=== PATIENT | female | born 1955 | race Caucasian/White ===

== ENCOUNTER 2018-10-28 11:31 | Day surgery (SDC) | payer OTHER, SELFPAY ==
[2018-10-28 11:48] VITALS: BP 184/84; PULSE 62; RESP 16; TEMP 36.4; O2SAT 100; BMI 18.5
[2018-10-28] MEDS: PROPARACAINE 0.5% OPHTH SOL 2 DROPS EYE-OP (12:07)
[2018-10-28] MEDS: CATARACT EYE COMPOUND (10 DROPS/SYRINGE) 3 DROPS EYE-OP (12:09)
--- NOTE | 2018-10-28 12:16 | PM.PREOP ---
Pre-operative Note Interval Note History & Physical reviewed/Exam performed by Physician: Yes Changes to H&P: No
[2018-10-28] MEDS: LIDOCAINE JELLY 2% 5 ML 1 APPLIC TOP (13:14)
[2018-10-28] MEDS: CHONDROIDTIN/SOD HYALURONATE 1.05 ML SYRINGE INTRAOCULA (13:14)
[2018-10-28] MEDS: MOXIFLOXACIN OPHTH DROPS 3 ML BOTTLE 2 DROPS INJ (13:14)
[2018-10-28] MEDS: PHENYLEPHRINE/LIDOCAINE VIAL (OR) 0.2 ML EYE-OP (13:15)
[2018-10-28] MEDS: BALANCED SALT IRRIG SOLN NO.2 500 ML, EPINEPHrine 1 MG IRR (13:16)
--- NOTE | 2018-10-28 13:34 | PM.OP.1 ---
Procedure & Clinicians Procedure: Cataract extraction with intraocular lens implant, right eye Same procedure as scheduled: Yes Indications: Nuclear sclerosis with anterior cortical changes, right eye Surgeon: Aston Savage Click Yes if Unassisted: Yes Anesthesia Type: MAC +/- Operative Notes Procedure in detail: The patient was brought to the operating suite. The correct patient, surgical site and lens were confirmed. 0.5 % tetracaine drops were placed in the right eye. The cornea was marked with a reference marker. The patient was prepped and draped in the typical sterile manner. A lid speculum was placed in the eye. 3.5% lidocaine gel was placed on the eye. A paracentesis port was created with a side-port blade. 0.1 mL of 1% preservative free lidocaine with phenylephrine was injected into the anterior chamber. Viscoelastic was injected into the anterior chamber. A 2.6mm keratome was used to create a clear corneal temporal incision. Cystotome and Utrata forceps were used to create a continuous curvilinear capsulorrhexis. Balanced salt solution was used to hydrodissect the nucleus. Phacoemulsification was used to remove the lens. The cornea was marked at 012 degrees. The capsular bag was inflated with viscoelastic. A Vasquez ACT 225 +13.0D lens was inserted into the capsule and rotated to 012 degrees. Viscoelastic was removed and the wound hydrated. The wound was found to be leak free and the eye was assessed to be at normal physiologic pressure. 0.1mL Vigamox was injected into the anterior chamber. The lid speculum was removed and the patient left the operating room in excellent condition. Complications: none Condition: stable Disposition: same day surgery
[2018-10-28 13:40] VITALS: BP 164/81; PULSE 55; RESP 16; TEMP 36.3; O2SAT 100
[2018-10-28 14:09] VITALS: BP 166/79; PULSE 54; RESP 16; TEMP 36.3; O2SAT 100
== END 2018-10-28 14:15 ==
LOC: OR 11:36
PROVIDERS: PCP Nurse Practitioner Family; Visit Provider Ophthalmology
DX: H25.11 Age-related nuclear cataract, right eye (principal)
CPT/HCPCS: J0171; J2250; J3010; V2787

== ENCOUNTER 2018-11-11 11:37 | Day surgery (SDC) | payer OTHER, SELFPAY ==
[2018-11-11 12:30] VITALS: BP 164/87; PULSE 66; RESP 16; TEMP 37.3; O2SAT 100; BMI 18.6
[2018-11-11] MEDS: PROPARACAINE 0.5% OPHTH SOL 2 DROPS EYE-OP (12:30)
[2018-11-11] MEDS: CATARACT EYE COMPOUND (10 DROPS/SYRINGE) 3 DROPS EYE-OP (12:32)
--- NOTE | 2018-11-11 13:39 | PM.PREOP ---
Pre-operative Note Interval Note History & Physical reviewed/Exam performed by Physician: Yes Changes to H&P: No
[2018-11-11] MEDS: MOXIFLOXACIN OPHTH DROPS 3 ML BOTTLE 2 DROPS INJ (14:07)
[2018-11-11] MEDS: PHENYLEPHRINE/LIDOCAINE VIAL (OR) 0.2 ML EYE-OP (14:07)
[2018-11-11] MEDS: CHONDROIDTIN/SOD HYALURONATE 1.05 ML SYRINGE INTRAOCULA (14:08)
[2018-11-11] MEDS: BALANCED SALT IRRIG SOLN NO.2 500 ML, EPINEPHrine 1 MG IRR (14:08)
[2018-11-11] MEDS: TETRACAINE 0.5% OPHTH DROPS 4 ML 2 DROPS EYE-LEFT (14:08)
[2018-11-11] MEDS: LIDOCAINE 2% INJ SDV 5 ML INJ (14:09)
--- NOTE | 2018-11-11 14:33 | P.OP_ITS ---
Procedure & Clinicians Procedure: cataract extraction with intraocular lens implant left Same procedure as scheduled: Yes Indications: Visually significant cataract, nuclear sclerosis left Surgeon: Aston Savage Click Yes if Unassisted: Yes Anesthesia Type: MAC +/- Operative Notes Procedure in detail: The patient was brought to the operating suite. The correct patient, surgical site and lens were confirmed. 0.5 % tetracaine drops were placed in the left eye. A cornea reference maker was used to claudy the cornea. The patient was prepped and draped in the typical sterile manner. A lid speculum was placed in the eye. 2% lidocaine was placed on the eye. A paracentesis port was created with a side-port blade. 0.1 mL of 1% preservative free lidocaine with phenylephrine was injected into the anterior chamber. Viscoelastic was injected into the anterior chamber. A 2.6mm keratome was used to create a clear corneal temporal incision. Cystotome and Utrata forceps were used to create a continuous curvilinear capsulorrhexis. Balanced salt solution was used to hydrodissect the nucleus. Phacoemulsification was used to remove the lens. The capsular bag was inflated with viscoelastic. A Vasquez ZCT 300 + 14.5D lens was inserted into the capsule and rotated to 158 degrees. Viscoelastic was removed and the wound hydrated. The wound was found to be leak free and the eye was assessed to be at normal physiologic pressure. 0.1mL Vigamox was injected into the anterior chamber. The lid speculum was removed and the patient left the operating room in excellent condition. Complications: none Condition: stable Disposition: same day surgery
[2018-11-11 14:55] VITALS: BP 160/81; PULSE 55; RESP 16; TEMP 36.3; O2SAT 100
== END 2018-11-11 15:15 ==
LOC: OR 11:38
PROVIDERS: PCP Nurse Practitioner Family; Visit Provider Ophthalmology
DX: H25.12 Age-related nuclear cataract, left eye (principal); G51.0 Bell's palsy
CPT/HCPCS: J0171; J3010; V2787